=== PATIENT | male | born 2005 | race African-American/Black ===

== ENCOUNTER 2023-10-17 13:42 | Emergency (ER) | payer SELFPAY ==
[2023-10-17 13:44] VITALS: BP 148/76
--- NOTE | 2023-10-17 15:06 | ED.GENMED ---
History of Present Illness
General
Chief Complaint: Headache
Source: patient
Exam Limitations: none
Time Seen by Provider: 10/17/23 15:06
Nursing documentation reviewed up to this point in time: agreed with
Travel History
Have you had any contact with someone who has COVID-19?: No
Do you have any symptoms of coronavirus? Fever > 100 degrees, chills, cough, shortness of breath, sore throat, loss of taste or smell, muscle aches, or headache?: No
History of Present Illness
History of Present Illness:
18-year-old male with no significant past medical history, lives at [facility], plays football, season is over, works out at gym. One week ago while lifting developed throbbing pain both temples radiating around to the back of his head, subsided with rest.
Similar episode the next day with exertion of working out so he did less stressful workout which helped.
5 days ago working out his legs developed similar bilateral hindu pressure radiating around to back of head and it has been constant since, some relief with Ibuprofen and rest. No recent head injury, no change in vision, denies n/v. Went to school
nurse yesterday and BP was 'high... 148/98' went back today and BP was normal.
Today while doing pull ups similar H/A returned 8/10, now it is 2/10. No problem with ambulating.
Past History
Past History
ED Past Medical History: None
ED Past Surgical History: None
Social History
Tobacco: Non-smoker
Alcohol: Occasional
Personal: Single
Employment: Student
Review of Systems
Review of Systems
Allergies reviewed?: Yes
All Other Systems: ROS reviewed and negative except as documented in HPI and ROS
Constitutional: Denies fever
Respiratory: Denies trouble breathing
Cardiac: Denies chest pain
ABD/GI: Denies abdominal pain, nausea or vomiting
Musculoskeletal: Reports no symptoms
Skin: Reports no symptoms
Neurological: Reports headache; Denies dizzy, weakness or numbness
Phy Exam
Physical Exam
Physical Exam:
GENERAL: No acute distress. A&Ox3.
CONSTITUTIONAL: Afebrile.
EYES: PERRL, conjunctivae normal
Neck: Supple
ENMT: moist mucus membranes, Pharynx nl
RESPIRATORY: Regular respirations, nonlabored, lungs clear.
CARDIOVASCULAR: Regular rate and rhythm, no murmurs, no rubs.
GI: Soft, nontender, normal BS
MUSCULOSKELETAL: Moves with ease. Well perfused.
SKIN: Warm, dry, normal
PSYCH: Normal mood and affect. Well kept, interactive and appropriate
NEUROLOGIC: Awake, alert and oriented. No focal neurological deficits. Cranial nerves II through XII intact. Ambulates well with steady gait.
Course
Orders/Labs/Results
Orders:
Orders
10/17/23 15:16
CT Head W/o Iv Contrast Urgent
Comment:
Reason For Exam: bilat hindu h/a radiating back head w exertition
Vital Signs
Initial and Last Documented VS:
Initial Vital Signs
Temp Pulse Resp BP Pulse Ox
97.8 F 78 18 148/76 98
10/17/23 13:44 10/17/23 13:44 10/17/23 13:44 10/17/23 13:44 10/17/23 13:44
Last Documented Vital Signs
Temp Pulse Resp BP Pulse Ox
97.8 F 87 16 129/83 100
10/17/23 13:44 10/17/23 19:01 10/17/23 17:34 10/17/23 19:01 10/17/23 17:34
Assistant Signal Maintainer consulted with Physician
Assistant Signal Maintainer consulted with physician?: Yes
Name of Physician Consulted: Teodora
MDM/Problems Addressed
Differential Diagnosis Includes:
Exertional headaches, SAH
MDM/Problems Addressed:
18-year-old male with no significant past medical history, lives at [facility], plays football, season is over, works out at gym. One week ago while lifting developed throbbing pain both temples radiating around to the back of his head, subsided with rest.
Similar episode the next day with exertion of working out so he did less stressful workout which helped.
5 days ago working out his legs developed similar bilateral hindu pressure radiating around to back of head and it has been constant since, some relief with Ibuprofen and rest. No recent head injury, no change in vision, denies n/v. Went to school
nurse yesterday and BP was 'high... 148/98' went back today and BP was normal.
Today while doing pull ups similar H/A returned 03/15, now it is 2/10. No problem with ambulating.
Neuro exam is normal
10/17/[address] negative
Most likely exertional headache
Plan: Trial of Indomethacin 25-50 mg 20 minutes prior to exercise, f/u with Neurology.
Consulted Neurologist Dr. Kaba who agrees he can exercise, use Indocin, rx sent to his pharmacy
Dr. Dixon in to evaluate. We spoke with his mom, no history of brain issues in family. She was updated on plan to f/u w Neuro.
*Critical Care Note
Total Time (30-74mins, 75-104mins- exclusive of procedures): Not Applicable
ED Attending Note
-
Portions of this chart may have been created with voice recognition software.� Occasional wrong word or��sound alike� substitutions may have occurred due to the inherent limitations of voice recognition software.
Discharge Plan
Departure
Patient Disposition: Home (Routine Discharge)
Date of Disposition: 10/17/23
Time of Disposition: 17:57
Patient with high blood pressure during this ER visit?: No
Condition: Good
Discharge Problem:
Exertional headache
Instructions: Headache, Adult (DC), Indomethacin
Prescriptions:
New
indomethacin 25 mg capsule
25 mg PO BID PRN (Reason: headache) Qty: 30 0RF
Rx Instructions:
25-50 mg 20 minutes prior to exercise
Referrals:
Hamzah Kaba MD [Active] - Next open appointment
PRIVATE,PHYSICIAN [Family Provider] -
Activity Restrictions/Additional Instructions:
As we discussed, your head CT is normal
You are most likely experiencing exertional headaches
Try the Indomethacin 25-50 mg 20-30 minutes before exercising.
You may continue exercising, obviously stop if headache occurs. Call Neurology tomorrow for next available appointment.
Return here immediately for worse headache, headache associated with nausea/vomiting, weakness or feeling sicker in any way.
Interventions
Interventions:
*Risk Screen - Suicide Last Done: 10/17/23 15:16
*General Assessment Last Done: 10/17/23 15:15
*Neglect/Abuse Screening Last Done: 10/17/23 15:16
*ED COVID-19 Vaccine History Last Done: 10/17/23 15:15
*Nursing Disposition Last Done: 10/17/23 19:01
ED- Neurological Assessment Last Done: 10/17/23 15:16
Discharge Date and Time
Discharge Date/Time: 10/17/23 19:02
[2023-10-17 15:15] VITALS: BMI 24.4
[2023-10-17 15:16] VITALS: BP 109/65
[2023-10-17 17:34] VITALS: BP 139/76
[2023-10-17 19:00] VITALS: BP 129/83
[2023-10-17 19:01] VITALS: BP 129/83
== END 2023-10-17 19:02 | disposition home or self-care (01) ==
LOC: EMR 13:42
PROVIDERS: EMERGENCY PHYSICIAN Emergency Medicine
DX: R51.9 Headache, unspecified (principal)
CPT/HCPCS: 99284; 70450